=== PATIENT | male | born 1950 | race African-American/Black ===

== ENCOUNTER 2018-10-27 11:21 | Outpatient (CLI) | END 2018-10-27 11:22 | disposition home or self-care (01) | LOC: RHC-LAB 11:21 | PROVIDERS: ATTEND Nurse Practitioner Family | DX: M54.9 Dorsalgia, unspecified (principal); G89.29 Other chronic pain; Z00.00 Encounter for general adult medical examination without abnormal findings; R41.3 Other amnesia; Z12.5 Encounter for screening for malignant neoplasm of prostate; I10 Essential (primary) hypertension; R01.1 Cardiac murmur, unspecified | CPT/HCPCS: 36415; 80053; 80061; 84443; 85025 ==

== ENCOUNTER 2023-03-04 12:51 | Observation (INO) ==
[2023-03-04] MEDS ORDERED: ALBUTEROL 0.083% NEB NEB STA (13:30)
--- NOTE | 2023-03-04 13:32 | ED.PDOC ---
General ED Provider: Dr. LORETO GARCIA MD Chief Complaint: Respiratory Complaint Stated Complaint: i am short of breath and coughing for 2 weeks Time Seen by Provider: 03/04/23 13:45 Information Source: Patient and Other Primary Care Provider: NATASHA MACK MD Nursing and Triage Documentation Reviewed and Agree: Yes Does patient meet sepsis criteria?: No System Inflammatory Response Syndrome: Not Applicable Sepsis Protocol: For patient's 13 years and over: Temp is 96.8 and below OR 101 and greater Pulse >90 BPM Resp >20/minute Acutely Altered Mental Status Are patient's symptoms suggestive of a new infection, such as: -Pneumonia -Skin, Soft Tissue -Endocarditis -UTI -Bone, Joint Infection -Implantable Device -Acute Abdominal Infection -Wound Infection -Meningitis -Blood Stream Catheter Infection -Unknown Review of Systems Review Of Systems Constitutional: Reports No symptoms Respiratory: Reports Cough and Short of air Cardiac: Reports Edema (LE edema) All Other Systems: Reviewed and Negative [facility] Medical History COPD (chronic obstructive pulmonary disease) J44.9 - Chronic obstructive pulmonary disease, unspecified (ICD-10) DVT (deep venous thrombosis) I82.409 - Acute embolism and thrombosis of unspecified deep veins of unspecified lower extremity (ICD-10) Hyperlipidemia E78.5 - Hyperlipidemia, unspecified (ICD-10) Hypertension I10 - Essential (primary) hypertension (ICD-10) Memory loss R41.3 - Other amnesia (ICD-10) Non compliance w medication regimen Z91.14 - Patient's other noncompliance with medication regimen (ICD-10) Pacemaker Z95.0 - Presence of cardiac pacemaker (ICD-10) Seasonal allergies J30.2 - Other seasonal allergic rhinitis (ICD-10) Severe systolic congestive heart failure I50.20 - Unspecified systolic (congestive) heart failure (ICD-10) Family History Mother Myocardial infarction Social History Smoking and tobacco status: Former smoker Second hand smoke exposure: Yes Alcohol intake: former Substance use type: former substance user Carin/church: [employer] Special carin needs: No Agree to transfusion: Yes Adopted: No Household members: none Housing: apartment Marital status: S SINGLE Lives independently: Yes (applied for help at home) Number of children: 8 Number of grandchildren: 8 Highest education level completed: GED or equivalent Financial difficulty paying for basics: somewhat hard service: No long term: No Current occupational status: retired Pets and animals: Yes Leisure activites: other History of recent travel: No Sexually active: No Do you think of yourself as: straight/heterosexual Current gender identity: male Seatbelt use: always Drives intoxicated or rides with intoxicated 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 Water heater temperature set < 120 degrees: Yes Additional social history: pt just moved to [facility] Surgical History colon surgery Physical Exam Physical Exam Appearance: Reports Well-appearing and Thin Ill-appearing: Moderate Pain Distress: None Eyes: Reports LILA and EOMI ENT: Reports Ears normal, Nose normal and Oropharynx normal Neck: Supple Respiratory: Reports Airway patent and Breath sounds equal Cardiovascular: Reports Pulses normal, No rub and No murmur GI/: Reports Soft and Nontender Musculoskeletal: Reports Normal strength, ROM intact and Edema (1+ BLE) Skin: Reports Warm and Dry Neurological: Reports Sensation intact and Motor intact Psychiatric: Reports Affect appropriate Interpretation EKG Interpretation ST Segment: Normal Interpretation: ventricular paced at 94, normal NJ interval, QRS 132 ms normal axis EKG Interpretation By: ED Physician Critical Care Note Critical Care Note Total Critical Care Time (mins): 0 Course Course 03/05/23 05:00 03/05/23 05:00 Orders, Labs, Meds: Lab Review 03/04/23 03/04/23 13:37 13:40 WBC 5.74 RBC 4.58 L Hgb 14.2 Hct 44.4 MCV 96.9 H MCH 31.0 MCHC 32.0 RDW Coeff of Shane 13.5 Plt Count 146 Immature Gran % (Auto) 0.2 Neut % (Auto) 68.8 Lymph % (Auto) 17.8 Mathews % (Auto) 11.8 H Eos % (Auto) 0.7 Baso % (Auto) 0.7 Neut # (Auto) 4.0 Lymph # (Auto) 1.0 Mathews # (Auto) 0.7 Eos # (Auto) 0.0 Baso # (Auto) 0.0 Immature Gran # (Auto) 0.0 Sodium 142.3 Potassium 3.65 Chloride 107.7 H Carbon Dioxide 28.5 Anion Gap 9.75 BUN 14.5 Creatinine 0.83 Estimated GFR (MDRD) 110.00 BUN/Creatinine Ratio 17.46 Glucose 119.3 H Calcium 8.77 Total Bilirubin 1.33 H AST 23.9 ALT 18.2 Alkaline Phosphatase 97.3 NT-Pro-B Natriuret Pep 42732 H Total Protein 7.35 Albumin 4.39 Globulin 2.96 Albumin/Globulin Ratio 1.48 Influ A Molecular Assay Negative by naat Influ B Molecular Assay Negative by naat SARS CoV-2 RNA Rapid POOJA Negative Orders Category Date Time Status PLACE PATIENT OBSERVATION .TO MEDSURG (MONITORED BED ADMISSION 03/04/23 16:08 Active ) EKG-(ED ONLY) Stat CARDIO 03/04/23 13:30 Completed NEBULIZER TREATMENT Stat CARDIO 03/04/23 13:30 Completed ACTIVITY .Early Mobilization for VTE Prevention CARE 03/04/23 16:08 Active NPO REMINDER: IMAGING ONCE CARE 03/04/23 14:14 Completed NPO REMINDER: IMAGING ONCE CARE 03/04/23 14:19 Completed TELEMETRY MONITORING TELE CARE 03/04/23 16:09 Active VITAL SIGNS Q8HR CARE 03/04/23 16:09 Completed REGULAR DIET DIETARY 03/04/23 Dinner Ordered Ice Cream Dispenser [ED GREEN END DEPARTMENT SUPERVISOR APPLIED] .ONCE EMERGENCY 03/04/23 13:32 Active CBC W/ AUTO DIFF DAILY@0600 LAB 03/05/23 05:00 Completed CBC W/ AUTO DIFF DAILY@0600 LAB 03/06/23 06:00 Ordered CBC W/ AUTO DIFF Stat LAB 03/04/23 13:37 Completed CMP [COMPREHENSIVE METABOLIC PANEL] Stat LAB 03/04/23 13:37 Completed COMPREHENSIVE METABOLIC PANEL DAILY@0600 LAB 03/05/23 05:00 Completed COMPREHENSIVE METABOLIC PANEL DAILY@0600 LAB 03/06/23 06:00 Ordered COVID [SARS COV-2 RNA RAPID POOJA] Stat LAB 03/04/23 13:40 Completed FLU A & B MOLECULAR [FLU A/B MOLECULAR] Stat LAB 03/04/23 13:40 Completed PROBNP ED [NT-PROBNP(ED)] Stat LAB 03/04/23 13:37 Completed Acetaminophen [Tylenol] Meds 03/04/23 16:08 Active 650 mg PO Q4H PRN Albuterol Sulfate 0.083% Neb [Albuterol 0.083% Neb] Meds 03/04/23 13:30 Discontinued 2.5 mg NEB ONCE STA Albuterol Sulfate 0.083% Neb [Albuterol 0.083% Neb] Meds 03/04/23 16:08 Active 2.5 mg NEB RTQ6H PRN Azithromycin Inj [Zithromax] 500 mg Meds 03/05/23 09:00 Active 0.9 % Sodium Chloride [Sodium Chloride] 250 ml IV DAILY Azithromycin Inj [Zithromax] 500 mg Meds 03/04/23 15:06 Discontinued 0.9 % Sodium Chloride [Sodium Chloride] 250 ml IV ONCE Ceftriaxone/D5w 1 gm Premix [Rocephin 1 gm/50 ml D5w] Meds 03/05/23 09:00 Active 1 gm in 50 ml IV DAILY Ceftriaxone/D5w 1 gm Premix [Rocephin 1 gm/50 ml D5w] Meds 03/04/23 15:06 Discontinued 1 gm in 50 ml IV ONCE Furosemide [Lasix] Meds 03/04/23 13:34 Discontinued 20 mg IVP ONCE ONE RESUSCITATION STATUS Routine OTHERS 03/04/23 16:08 Ordered CHEST, 1V AP ONLY Stat RADS 03/04/23 13:[address] CHEST PE PROTOCOL Stat RADS 03/04/23 14:19 Completed Medications Generic Name Dose Route Start Last Admin Trade Name Freq PRN Reason Stop Dose Admin Acetaminophen 650 mg 03/04/23 16:08 Acetaminophen 325 Mg Tablet PO Q4H PRN Mild Pain Albuterol Sulfate 2.5 mg 03/04/23 16:08 Albuterol Sulfate 0.083% Vial.Neb NEB RTQ6H PRN shortness of breath Albuterol/Ipratropium 3 ml 03/04/23 18:00 03/05/23 05:08 Ipratropium/Albuterol Vial.Neb NEB 3 ml RTQ6H JORGE Administration Furosemide 40 mg 03/04/23 21:00 03/05/23 04:48 Furosemide Inj 40 Mg/4 Ml Vial IVP 40 mg Q8HR JORGE Administration CEFTRIAXONE/D5W 1 GM PREMIX 1 gm in 50 mls @ 75 mls/hr 03/05/23 09:00 Rocephin 1 Gm/50 Ml D5w IV 03/08/23 08:59 DAILY JORGE Azithromycin 500 mg/ Sodium 250 mls @ 125 mls/hr 03/05/23 09:00 Chloride IV 03/06/23 23:59 DAILY JORGE Discontinued Medications Generic Name Dose Route Start Last Admin Trade Name Ella PRN Reason Stop Dose Admin Albuterol Sulfate 2.5 mg 03/04/23 13:30 03/04/23 13:53 Albuterol Sulfate 0.083% Vial.Neb NEB 03/04/23 13:31 2.5 mg ONCE STA Administration Furosemide 20 mg 03/04/23 13:34 03/04/23 13:59 Furosemide Inj 20 Mg/2 Ml Vial IVP 03/04/23 13:35 20 mg ONCE ONE Administration CEFTRIAXONE/D5W 1 GM PREMIX 1 gm in 50 mls @ 75 mls/hr 03/04/23 15:06 03/04/23 15:39 Rocephin 1 Gm/50 Ml D5w IV 03/04/23 15:45 75 mls/hr ONCE ONE Administration Azithromycin 500 mg/ Sodium 250 mls @ 125 mls/hr 03/04/23 15:06 03/04/23 16:24 Chloride IV 03/04/23 17:05 125 mls/hr ONCE STA Administration Vital Signs: Temp Pulse Resp BP Pulse Ox 03/04/23 12:59 97.8 F 93 16 163/95 H 95 72 yo male with PMH of CHF, DVT,COPD and HTN coming for SOB for 2 weeks, patient was found to be in fluid overload, given lasix 20 mg and albuterol treatment. rocephin and azithromycin for pneumonia. patient was admitted to inpatient services for further managment. Discharge Plan Discharge Patient Disposition: ADMITTED INPATIENT Discharge Problem: Pneumonia, Acute on chronic systolic CHF (congestive heart failure) Did you review [place] LIFE SKILLS INSTRUCTOR for ALL controlled substances?: No ED Provider: LORETO GARCIA Condition: Poor Physician Progress Note: []
[2023-03-04] MEDS ORDERED: LASIX IVP ONE (13:34)
[2023-03-04 13:41] LABS: BASOPHILS % (AUTO) 0.7 % (0.0-3.0); EOSINOPHILS % (AUTO) 0.7 % (0.0-7.0); HEMATOCRIT 44.4 % (42.0-52.0); HEMOGLOBIN 14.2 g/dl (14.0-18.0); IMMATURE GRANULOCYTE % (AUTO) 0.2 % (0.0-5.0); LYMPHOCYTES % (AUTO) 17.8 (10.0-50.0); MEAN CORPUSCULAR VOLUME 96.9 fl (80.0-94.0); MONOCYTES # (AUTO) 0.7 K/uL (0.4-2.0); MONOCYTES % (AUTO) 11.8 (0-10); NEUTROPHILS % (AUTO) 68.8 % (42.2-75.2); PLATELET COUNT 146 10^3/uL (140-440); RDW COEFFICIENT OF VARIATION 13.5 % (11.6-14.8); RED BLOOD COUNT 4.58 10^6/ul (4.70-6.10); WHITE BLOOD COUNT 5.74 K/ul (4.2-10.2)
[2023-03-04 13:55] LABS: ALANINE AMINOTRANSFERASE 18.2 U/L (0-50); ALBUMIN 4.39 g/dL (3.5-5.0); ALKALINE PHOSPHATASE 97.3 U/L (56-119); ASPARTATE AMINO TRANSFERASE 23.9 U/L (17-59); BILIRUBIN,TOTAL 1.33 mg/dL (0.2-1.3); BLOOD UREA NITROGEN 14.5 mg/dL (9-20); CALCIUM 8.77 mg/dL (8.4-10.2); CARBON DIOXIDE 28.5 mmol/L (22-30.0); CHLORIDE 107.7 mmol/L (98-107); CREATININE 0.83 mg/dL (0.60-1.10); GLUCOSE 119.3 mg/dL (74-106); POTASSIUM 3.65 mmol/L (3.5-5.1); SODIUM 142.3 mmol/L (134.5-145); TOTAL PROTEIN 7.35 g/dL (6.3-8.2)
[2023-03-04 14:03] LABS: MOLECULAR FLU A NEGATIVE BY NAAT (NEGATIVE); MOLECULAR FLU B NEGATIVE BY NAAT (NEGATIVE)
--- NOTE | 2023-03-04 14:06 | DI ---
EXAM: CHEST RADIOGRAPH (1 VIEW) TECHNIQUE: Frontal Chest Radiograph. HISTORY: Cough COMPARISON: None. FINDINGS: Lines, Tubes, Devices: Cardiac conduction device Lungs and Pleura: Small pleural effusions with adjacent consolidation, left greater than right. Cardiac silhouette: Enlarged. Bones: No acute abnormality. IMPRESSION: Findings concerning for pneumonia. Clinical and imaging follow-up to ensure resolution and exclude other etiology.
[2023-03-04 14:15] LABS: SARS COV-2 RNA RAPID NAAT NEGATIVE (NEGATIVE)
[2023-03-04] MEDS ORDERED: ZITHROMAX 500 MG in SODIUM CHLORIDE 250 ML IV STA (15:06)
[2023-03-04] MEDS ORDERED: ROCEPHIN 1 GM/50 ML D5W 1 GM/50 ML BAG IV ONE (15:06)
--- NOTE | 2023-03-04 15:22 | CT ---
EXAM: CT ANGIOGRAM CHEST. HISTORY: Shortness of breath. Previous deep vein thrombosis. Evaluate for pulmonary embolus. COMPARISON: Radiograph earlier the same day. TECHNIQUE: Multiple axial images of the chest were obtained following intravenous administration of 75 mL Omnipaque 350, low osmolar. Images were reformatted in the sagittal and coronal plane. 3-D an d maximum intensity projection reformatted images were created on an independent workstation. FINDINGS: Right-sided electronic cardiac device noted. Heart is enlarged. There is no pericardial effusion. Coronary artery and aortic calcifications present. No pulmonary arterial filling defect is seen. No right heart strain. No lymphadenopathy. Moderate emphysema. Small bilateral pleural effusions. Calcified granulomatous changes. Mild depen dent subsegmental atelectasis left lower lobe. A few small subpleural nodular densities in the anter omedial left upper lobe and the right middle lobe measuring up to 0.4 cm. No pneumothorax. No acute abnormality in the upper abdomen. No acute osseous abnormality. IMPRESSION: 1. No pulmonary embolus. 2. Small bilateral pleural effusions. 3. Right middle lobe and left upper lobe nodularity, most likely infectious or inflammatory. Consid er follow-up CT in 3 months for reassessment. 4. Moderate emphysema. 5. Cardiomegaly and atherosclerosis. All CT scans are performed using dose optimization techniques as appropriate to the performed exam an d include at least one of the following: Automated exposure control, adjustment of the mA and/or kV according t o size, and the use of iterative reconstruction technique.
[2023-03-04] MEDS ORDERED: TYLENOL PO PRN (16:08)
[2023-03-04] MEDS ORDERED: ALBUTEROL 0.083% NEB NEB PRN (16:08)
--- NOTE | 2023-03-04 17:16 | PCM ---
Date of Service Date Seen by Provider: 03/04/23 Time Seen by Provider: 17:05 Admit Day/Time Admission Date: 03/04/23 Reason for Admission Chief Complaint: CHF EXACERBATION, PNEUMONIA Hospital Provider Hospital Provider: JAC RODRIGEZ, [facility] Primary Care Physician Primary Care Physician: NATASHA MACK MD History of Present Illness History of Present Illness: 72 yo male presented to the ER today with shortness of breath that has been ongoing for 2 weeks. Has also had a dry cough. Patient has a history of early dementia and is a poor historian. Denies any fever that he is aware of, chest pain, chills, N/V/D. Does report having trouble with edema. He saw his PCP earlier this month following his admission at [facility] for DVT. During his appointment, he was asked if he was doing all the things he is s upposed to and stated that he wasn't. He was told to be sure he was elevating his legs and wearing compression stockings like he is supposed to. Son was speaking to patient in ER and patient had stated he was forgetting to take his medications every day. Case Discussed With Case Discussed With: Patient's case was discussed with the ER Physicians, Dr. Reyes [facility] Medical History COPD (chronic obstructive pulmonary disease) J44.9 - Chronic obstructive pulmonary disease, unspecified (ICD-10) DVT (deep venous thrombosis) I82.409 - Acute embolism and thrombosis of unspecified deep veins of unspecified lower extremity (ICD-10) Hyperlipidemia E78.5 - Hyperlipidemia, unspecified (ICD-10) Hypertension I10 - Essential (primary) hypertension (ICD-10) Memory loss R41.3 - Other amnesia (ICD-10) Non compliance w medication regimen Z91.14 - Patient's other noncompliance with medication regimen (ICD-10) Pacemaker Z95.0 - Presence of cardiac pacemaker (ICD-10) Seasonal allergies J30.2 - Other seasonal allergic rhinitis (ICD-10) Severe systolic congestive heart failure I50.20 - Unspecified systolic (congestive) heart failure (ICD-10) Surgical History colon surgery Family History Mother Myocardial infarction Social History Smoking and tobacco status: Former smoker Second hand smoke exposure: Yes Alcohol intake: former Substance use type: former substance user Carin/yarsani: ROMAN CATHOLIC Special carin needs: No Agree to transfusion: Yes Adopted: No Household members: none Housing: apartment Marital status: S SINGLE Lives independently: Yes (applied for help at home) Number of children: 8 Number of grandchildren: 8 Highest education level completed: GED or equivalent Financial difficulty paying for basics: somewhat hard service: No assisted: No Current occupational status: retired Pets and animals: Yes Leisure activites: other History of recent travel: No Sexually active: No Do you think of yourself as: straight/heterosexual Current gender identity: male Seatbelt use: always Drives intoxicated or rides with intoxicated 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 Water heater temperature set < 120 degrees: Yes Additional social history: pt just moved to [facility] Allergies Allergies Allergy/AdvReac Type Severity Reaction Status Date / Time lisinopril AdvReac Cough Verified 03/04/23 12:58 versed AdvReac Unknown Uncoded 03/04/23 12:58 Current Medications Home Medications atorvastatin 40 mg tablet 40 mg PO QPM 01/24/21 [History Confirmed 03/04/23 Last Taken Unknown] nitroglycerin 0.4 mg sublingual tablet 0.4 mg sublingual Q5M PRN chest pain 01/24/21 [History Confirmed 03/04/23 Last Taken Unknown] carvedilol 12.5 mg tablet 25 mg PO BID 09/03/22 [History Confirmed 03/04/23 Last Taken Unknown] furosemide 40 mg tablet 20 mg PO BID 09/03/22 [History Confirmed 03/04/23 Last Taken Unknown] sacubitril 49 mg-valsartan 51 mg tablet (Entresto) 1 tab PO BID 09/03/22 [History Confirmed 03/04/23 Last Taken Unknown] Eliquis DVT-PE Treat 30D Start (apixaban) See Rx Instructions PO PER PKG DIR #74 ea 02/05/23 [Rx Confirmed 03/04/23 Last Taken Unknown] loratadine 10 mg tablet (Allergy Relief (loratadine)) 10 mg PO QDAY 30 days #30 tabs 02/05/23 [Rx Confirmed 03/04/23 Last Taken Unknown] Home Acetaminophen (Acetaminophen 325 Mg Tablet) 650 mg PO Q4H PRN PRN Reason: Mild Pain Albuterol Sulfate (Albuterol Sulfate 0.083% Vial.Neb) 2.5 mg NEB RTQ6H PRN PRN Reason: shortness of breath Albuterol/Ipratropium (Ipratropium/Albuterol Vial.Neb) 3 ml NEB RTQ6H JORGE Last Admin: 03/04/23 17:39 Dose: 3 ml Furosemide (Furosemide Inj 40 Mg/4 Ml Vial) 40 mg IVP Q8HR JORGE CEFTRIAXONE/D5W 1 GM PREMIX (Rocephin 1 Gm/50 Ml D5w) 1 gm in 50 mls @ 75 mls/hr IV DAILY JORGE Stop: 03/08/23 08:59 Azithromycin 500 mg/ Sodium (Chloride) 250 mls @ 125 mls/hr IV DAILY JORGE Stop: 03/06/23 23:59 Discontinued Medications Albuterol Sulfate (Albuterol Sulfate 0.083% Vial.Neb) 2.5 mg NEB ONCE STA Stop: 03/04/23 13:31 Last Admin: 03/04/23 13:53 Dose: 2.5 mg Furosemide (Furosemide Inj 20 Mg/2 Ml Vial) 20 mg IVP ONCE ONE Stop: 03/04/23 13:35 Last Admin: 03/04/23 13:59 Dose: 20 mg CEFTRIAXONE/D5W 1 GM PREMIX (Rocephin 1 Gm/50 Ml D5w) 1 gm in 50 mls @ 75 mls/hr IV ONCE ONE Stop: 03/04/23 15:45 Last Admin: 03/04/23 15:39 Dose: 75 mls/hr Azithromycin 500 mg/ Sodium (Chloride) 250 mls @ 125 mls/hr IV ONCE STA Stop: 03/04/23 17:05 Last Admin: 03/04/23 16:24 Dose: 125 mls/hr Review of Systems Constitutional: Reports No symptoms Head: Reports Normocephalic and Atraumatic Eyes: Reports No symptoms Ears: Reports No symptoms Nose: Reports No symptoms Mouth: Reports No symptoms Throat: Reports No symptoms Cardiovascular: Reports Edema (BLE) Respiratory: Reports Cough (nonproductive) Gastrointestinal: Reports No symptoms Genitourinary: Reports No Symptoms Musculoskeletal: Reports No symptoms Endocrine: Reports No symptoms Hematology: Reports No symptoms Immunology: Reports No symptoms Neurological: Reports No symptoms Psychiatric: Reports No symptoms Physical examination Most Recent Vital Signs: Most Recent Vital Signs Temperature 97.8 F 03/04/23 12:59 Temperature Source Infrared 03/04/23 12:59 Pulse Rate 93 03/04/23 12:59 Respiratory Rate 16 03/04/23 12:59 Blood Pressure 163/95 H 03/04/23 12:59 O2 Sat by Pulse Oximetry 95 03/04/23 12:59 Height 5 ft 9 in 03/04/23 12:59 Weight 139 lb 6 oz 03/04/23 12:59 Appearance: Positive No Apparent Distress, Ill-Appearing and Thin Skin: Positive Warm, Good Turgor and Good Color HEENT: Positive Normocephalic, Atraumatic and PERRLA Neck: Positive Supple and Midline Trachea Chest/Lungs: Positive Symmetrical With Equal Breath Sounds, Good Air Movement all 4 Lung Owusu and Other (bibasilar crackles bilaterally to auscultation) Heart: Positive RRR and Pulses Normal GI/: Positive Soft, Nontender, Bowel Sounds Normal, No Distention and No Organomegaly Musculoskeletal: Positive Not Examined Extremities: Positive Edema (+2 nonpitting edema) Neurological: Positive Sensation Intact, Motor intact, Alert, Oriented (to person and place) and Muscle Strength 5/5 in Upper and Lower Extremities Bilaterally (4/5) Psychiatric: Positive Appropriate Mood, Appropriate Affect, Intact Memory, Good Short-Term Recall and Good Long-Term Recall Labs This Visit Labs This Visit: Labs This Visit 03/04/23 03/04/23 13:37 13:40 WBC 5.74 RBC 4.58 L Hgb 14.2 Hct 44.4 MCV 96.9 H MCH 31.0 MCHC 32.0 RDW Coeff of Shane 13.5 Plt Count 146 Immature Gran % (Auto) 0.2 Neut % (Auto) 68.8 Lymph % (Auto) 17.8 [place] % (Auto) 11.8 H Eos % (Auto) 0.7 Baso % (Auto) 0.7 Neut # (Auto) 4.0 Lymph # (Auto) 1.0 [place]ble # (Auto) 0.7 Eos # (Auto) 0.0 Baso # (Auto) 0.0 Immature Gran # (Auto) 0.0 Sodium 142.3 Potassium 3.65 Chloride 107.7 H Carbon Dioxide 28.5 Anion Gap 9.75 BUN 14.5 Creatinine 0.83 Estimated GFR (MDRD) 110.00 BUN/Creatinine Ratio 17.46 Glucose 119.3 H Calcium 8.77 Total Bilirubin 1.33 H AST 23.9 ALT 18.2 Alkaline Phosphatase 97.3 NT-Pro-B Natriuret Pep 13042 H Total Protein 7.35 Albumin 4.39 Globulin 2.96 Albumin/Globulin Ratio 1.48 Influ A Molecular Assay Negative by naat Influ B Molecular Assay Negative by naat SARS CoV-2 RNA Rapid POOJA Negative Imaging Imagining: CT CHEST PE PROTOCOL IMPRESSION: 1. No pulmonary embolus. 2. Small bilateral pleural effusions. 3. Right middle lobe and left upper lobe nodularity, most likely infectious or inflammatory. Consider follow-up CT in 3 months for reassessment. 4. Moderate emphysema. 5. Cardiomegaly and atherosclerosis. CHEST, 1V AP ONLY IMPRESSION: Findings concerning for pneumonia. Clinical and imaging follow-up to ensure resolution and exclude other etiology. Review Statement Review Statement: I have independently reviewed and interpreted the labs/EKGs/imaging that were ordered by the ER provider. I have reviewed all outside records that are available currently in our EMR including imaging/notes/labs from previous visits. Plan Plan: 1. Community Acquired vs Hospital Acquired Pneumonia - rocephin & eric, sputum culture, telemetry, RT following, nebs, solumedrol Q8H 2. Acute on Chronic Systolic Congestive Heart Failure - lasix 40 mg Q8H, strict I&O, daily weight, 1800 fluid restriction 3. COPD - chronic, does not wear home O2, does not appear to be in exacerbation, monitor 4. Hypertension - chronic, continue home medications 5. DVT - treating with eliquis as previously prescribed 6. Hyperlipidemia - chronic, continue home medications DVT Prophylaxis: Eliquis Time Spent: Greater than 80 minutes spent with patient, 50% of the time spent with this patient was devoted to counseling and coordination of care. Advanced Care Plannin minutes spent discussing advance care planning. Disposition: Admit to Med/Surg Observation Discussed Plan of Care with Dr. Tanner. Medications Medication Orders: Medications Ordered Category Date Time Status Acetaminophen [Tylenol] Meds 03/04/23 16:08 Active 650 mg PO Q4H PRN Albuterol Sulfate 0.083% Neb [Albuterol 0.083% Neb] Meds 03/04/23 16:08 Active 2.5 mg NEB RTQ6H PRN Azithromycin Inj [Zithromax] 500 mg Meds 03/05/23 09:00 Active 0.9 % Sodium Chloride [Sodium Chloride] 250 ml IV DAILY Ceftriaxone/D5w 1 gm Premix [Rocephin 1 gm/50 ml D5w] Meds 03/05/23 09:00 Active 1 gm in 50 ml IV DAILY Furosemide [Lasix] Meds 03/04/23 21:00 Active 40 mg IVP Q8HR Ipratropium/Albuterol Neb [Duoneb] Meds 03/04/23 18:00 Active 3 ml NEB RTQ6H
[2023-03-04] MEDS: DUONEB NEB SCH ×2 (17:39→22:50)
[2023-03-04 17:58] VITALS: BMI 19.6
[2023-03-04] MEDS ORDERED: ATROVENT 0.02% NEB NEB SCH (18:00)
[2023-03-04] MEDS ORDERED: LASIX IVP SCH (21:00)
[2023-03-04] MEDS: LASIX IVP SCH (21:50)
[2023-03-05] MEDS: LASIX IVP SCH ×3 (04:48→20:25)
[2023-03-05] MEDS: DUONEB NEB SCH ×4 (05:08→23:13)
[2023-03-05 05:10] LABS: BASOPHILS % (AUTO) 0.8 % (0.0-3.0); EOSINOPHILS % (AUTO) 0.6 % (0.0-7.0); HEMATOCRIT 39.3 % (42.0-52.0); HEMOGLOBIN 12.6 g/dl (14.0-18.0); IMMATURE GRANULOCYTE % (AUTO) 0.2 % (0.0-5.0); LYMPHOCYTES % (AUTO) 21.6 (10.0-50.0); MEAN CORPUSCULAR HEMOGLOBIN 30.3 pg (27.0-31.0); MEAN CORPUSCULAR HGB CONC 32.1 (31.8-35.4); MEAN CORPUSCULAR VOLUME 94.5 fl (80.0-94.0); MONOCYTES # (AUTO) 0.7 K/uL (0.4-2.0); MONOCYTES % (AUTO) 15.2 (0-10); NEUTROPHILS % (AUTO) 61.6 % (42.2-75.2); PLATELET COUNT 130 10^3/uL (140-440); RDW COEFFICIENT OF VARIATION 13.5 % (11.6-14.8); RED BLOOD COUNT 4.16 10^6/ul (4.70-6.10); WHITE BLOOD COUNT 4.81 K/ul (4.2-10.2)
[2023-03-05 05:18] LABS: ALANINE AMINOTRANSFERASE 15.8 U/L (0-50); ALBUMIN 4.03 g/dL (3.5-5.0); ALKALINE PHOSPHATASE 87.4 U/L (56-119); ASPARTATE AMINO TRANSFERASE 23.3 U/L (17-59); BILIRUBIN,TOTAL 1.18 mg/dL (0.2-1.3); BLOOD UREA NITROGEN 14.5 mg/dL (9-20); CARBON DIOXIDE 30.6 mmol/L (22-30.0); CHLORIDE 106.5 mmol/L (98-107); CREATININE 0.92 mg/dL (0.60-1.10); GLUCOSE 102.6 mg/dL (74-106); MAGNESIUM 2.08 mg/dL (1.6-2.3); POTASSIUM 3.32 mmol/L (3.5-5.1); SODIUM 143.4 mmol/L (134.5-145); TOTAL PROTEIN 6.72 g/dL (6.3-8.2)
[2023-03-05] MEDS ORDERED: K-DUR PO STA (08:17)
[2023-03-05] MEDS: ROCEPHIN 1 GM/50 ML D5W 1 GM/50 ML BAG IV SCH (08:52)
--- NOTE | 2023-03-05 09:23 | PCM.PROG ---
Date/Time Seen Date Seen by Provider: 03/05/23 Time Seen by Provider: 09:05 Provider [facility] Chief Complaint Chief Complaint: CHF EXACERBATION, PNEUMONIA Subjective Subjective: Feels better today. Requesting to go home. Edema worse today. Still SOB on exertion Objective Appearance: Positive Ill-Appearing and Thin Chest/Lungs: Positive Symmetrical With Equal Breath Sounds, Clear to Auscultation Bilaterally and Good Air Movement all 4 Lung [place] Heart: Positive RRR and Pulses Normal GI/: Positive Soft, Nontender, Bowel Sounds Normal, No Distention and No Organomegaly Musculoskeletal: Positive Not Examined Neurological: Positive Sensation Intact, Motor intact, Alert, Oriented (to person and place) and Muscle Strength 5/5 in Upper and Lower Extremities Bilaterally (4/5) Vital Signs Vital Signs: Vital Signs: Last 24 Hours 03/04/23 12:59 03/04/23 17:02 03/04/23 17:02 Temperature 97.8 F 96.2 F L Temperature Source Infrared Oral Pulse Rate 93 92 Respiratory Rate 16 22 H Blood Pressure 163/95 H Blood Pressure Mean Blood Pressure Right Arm 155/92 Blood Pressure Location Blood Pressure Position Supine O2 Sat by Pulse Oximetry 95 100 Oxygen Delivery Method Room Air Room Air Height 5 ft 9 in 5 ft 9 in Weight 139 lb 6 oz 133 lb Telemetry Type Telemetry Monitoring Telemetry Heart Rate EKG IL Interval EKG QRS Interval Telemetry Strip Reading 03/04/23 17:16 03/04/23 17:52 03/04/23 19:00 Temperature Temperature Source Pulse Rate Respiratory Rate Blood Pressure Blood Pressure Mean Blood Pressure Right Arm Blood Pressure Location Blood Pressure Position O2 Sat by Pulse Oximetry Oxygen Delivery Method Height Weight 133 lb Telemetry Type Remote Telemetry Remote Telemetry Telemetry Monitoring Started Continues Telemetry Heart Rate 96 100 EKG IL Interval 0.19 EKG QRS Interval 0.06 0.10 Telemetry Strip Reading Vpaced with PVC SR 03/04/23 20:54 03/04/23 20:00 03/05/23 01:00 Temperature 97.3 F L Temperature Source Temporal Artery Scan Pulse Rate 90 Respiratory Rate 18 Blood Pressure 132/76 Blood Pressure Mean 94 Blood Pressure Right Arm Blood Pressure Location Right Arm Blood Pressure Position Supine O2 Sat by Pulse Oximetry 94 L Oxygen Delivery Method Room Air Room Air Height Weight Telemetry Type Remote Telemetry Telemetry Monitoring Continues Telemetry Heart Rate 85 EKG IL Interval 0.22 H EKG QRS Interval 0.07 Telemetry Strip Reading SR w/ PVCs 03/05/23 05:39 03/05/23 05:41 03/05/23 07:00 Temperature 96.7 F L Temperature Source Temporal Artery Scan Pulse Rate 85 Respiratory Rate 16 Blood Pressure 152/98 H Blood Pressure Mean 116 Blood Pressure Right Arm Blood Pressure Location Right Arm Blood Pressure Position Sitting O2 Sat by Pulse Oximetry 96 Oxygen Delivery Method Room Air Height Weight 127 lb 1.6 oz Telemetry Type Remote Telemetry Telemetry Monitoring Continues Telemetry Heart Rate 85 EKG IL Interval 0.13 EKG QRS Interval 0.10 Telemetry Strip Reading V PACED 03/05/23 08:00 Temperature Temperature Source Pulse Rate Respiratory Rate Blood Pressure Blood Pressure Mean Blood Pressure Right Arm Blood Pressure Location Blood Pressure Position O2 Sat by Pulse Oximetry Oxygen Delivery Method Room Air Height Weight Telemetry Type Telemetry Monitoring Telemetry Heart Rate EKG IL Interval EKG QRS Interval Telemetry Strip Reading Lab Results Lab Results: Lab Results: Last 24 Hours 03/05/23 03/04/23 03/04/23 05:00 13:40 13:37 WBC 4.81 5.74 RBC 4.16 L 4.58 L Hgb 12.6 L 14.2 Hct 39.3 L 44.4 MCV 94.5 H 96.9 H MCH 30.3 31.0 MCHC 32.1 32.0 RDW Coeff of Shane 13.5 13.5 Plt Count 130 L 146 Immature Gran % (Auto) 0.2 0.2 Neut % (Auto) 61.6 68.8 Lymph % (Auto) 21.6 17.8 [place] % (Auto) 15.2 H 11.8 H Eos % (Auto) 0.6 0.7 Baso % (Auto) 0.8 0.7 Neut # (Auto) 3.0 4.0 Lymph # (Auto) 1.0 1.0 [place] # (Auto) 0.7 0.7 Eos # (Auto) 0.0 0.0 Baso # (Auto) 0.0 0.0 Immature Gran # (Auto) 0.0 0.0 Sodium 143.4 142.3 Potassium 3.32 L 3.65 Chloride 106.5 107.7 H Carbon Dioxide 30.6 H 28.5 Anion Gap 9.62 9.75 BUN 14.5 14.5 Creatinine 0.92 0.83 Estimated GFR (MDRD) 97.00 110.00 BUN/Creatinine Ratio 15.76 17.46 Glucose 102.6 119.3 H Calcium 8.50 8.77 Magnesium 2.08 Total Bilirubin 1.18 1.33 H AST 23.3 23.9 ALT 15.8 18.2 Alkaline Phosphatase 87.4 97.3 NT-Pro-B Natriuret Pep > 79045 H 11659 H Total Protein 6.72 7.35 Albumin 4.03 4.39 Globulin 2.69 2.96 Albumin/Globulin Ratio 1.49 1.48 Influ A Molecular Assay Negative by naat Influ B Molecular Assay Negative by naat SARS CoV-2 RNA Rapid POOJA Negative Additional Comments Additional Comments: I have independently reviewed and interpreted the labs/EKGs/imaging ordered during this hospital stay. I have reviewed outside records that are available in our EMR that pertain to medical stay including imaging/notes/labs from previous visits. Active Medications Active Medications: Medications Generic Name Dose Route Start Last Admin Trade Name Freq PRN Reason Stop Dose Admin Acetaminophen 650 mg 03/04/23 16:08 Acetaminophen 325 Mg Tablet PO Q4H PRN Mild Pain Albuterol Sulfate 2.5 mg 03/04/23 16:08 Albuterol Sulfate 0.083% Vial.Neb NEB RTQ6H PRN shortness of breath Albuterol/Ipratropium 3 ml 03/04/23 18:00 03/05/23 05:08 Ipratropium/Albuterol Vial.Neb NEB 3 ml RTQ6H JORGE Administration Furosemide 40 mg 03/04/23 21:00 03/05/23 04:48 Furosemide Inj 40 Mg/4 Ml Vial IVP 40 mg Q8HR JORGE Administration CEFTRIAXONE/D5W 1 GM PREMIX 1 gm in 50 mls @ 75 mls/hr 03/05/23 09:00 03/05/23 08:52 Rocephin 1 Gm/50 Ml D5w IV 03/08/23 08:59 75 mls/hr DAILY JORGE Administration Azithromycin 500 mg/ Sodium 250 mls @ 125 mls/hr 03/05/23 09:00 Chloride IV 03/06/23 23:59 DAILY JORGE Plan Plan: 1. Community Acquired vs Hospital Acquired Pneumonia - sourav & eric, sputum culture, telemetry, RT following, nebs, solumedrol Q8H, procal negative 2. Acute on Chronic Systolic Congestive Heart Failure - continue lasix 40 mg Q8H, strict I&O, daily weight, 1800 fluid restriction, checking echo - last was in 2020 with EF of 15%. 3. COPD - chronic, does not wear home O2, does not appear to be in exacerbation, monitor 4. Hypertension - chronic, continue home medications 5. DVT - treating with eliquis as previously prescribed 6. Hyperlipidemia - chronic, continue home medications Review Statement Review Statement: I have personally discussed and reviewed the patient's visit/currently labs/imaging/decision making with Dr. Tanner, my supervising attending. Greater that 50 minutes spent with patient, 50% of the time spent with this patient was devoted to counseling and coordination of care.
[2023-03-05] MEDS: ZITHROMAX 500 MG in SODIUM CHLORIDE 250 ML IV SCH (09:53)
[2023-03-05] MEDS ORDERED: ENTRESTO 24 MG-26 MG TABLET ONE (16:37)
[2023-03-05] MEDS ORDERED: ELIQUIS ONE (16:37)
[2023-03-05] MEDS: CLARITIN PO SCH (16:39)
[2023-03-05] MEDS: COREG PO SCH (16:39)
[2023-03-05] MEDS: ENTRESTO 24 MG-26 MG TABLET PO SCH (20:08)
[2023-03-05] MEDS: ELIQUIS PO SCH (20:08)
[2023-03-06] MEDS: LASIX IVP SCH ×2 (05:04→14:13)
[2023-03-06] MEDS: DUONEB NEB SCH ×2 (05:38→10:59)
[2023-03-06 08:45] LABS: ALANINE AMINOTRANSFERASE 14.2 U/L (0-50); ALBUMIN 3.89 g/dL (3.5-5.0); ALKALINE PHOSPHATASE 84.3 U/L (56-119); ASPARTATE AMINO TRANSFERASE 20.3 U/L (17-59); BILIRUBIN,TOTAL 0.97 mg/dL (0.2-1.3); BLOOD UREA NITROGEN 13.9 mg/dL (9-20); CALCIUM 8.61 mg/dL (8.4-10.2); CARBON DIOXIDE 28.2 mmol/L (22-30.0); CHLORIDE 106.6 mmol/L (98-107); CREATININE 0.91 mg/dL (0.60-1.10); GLUCOSE 106.6 mg/dL (74-106); POTASSIUM 3.85 mmol/L (3.5-5.1); SODIUM 140.3 mmol/L (134.5-145); TOTAL PROTEIN 6.61 g/dL (6.3-8.2)
[2023-03-06] MEDS ORDERED: ALDACTONE PO SCH (09:00)
[2023-03-06] MEDS ORDERED: JARDIANCE PO SCH (09:00)
[2023-03-06] MEDS: ENTRESTO 24 MG-26 MG TABLET PO SCH (09:05)
[2023-03-06] MEDS: COREG PO SCH (09:06)
[2023-03-06] MEDS: CLARITIN PO SCH (09:07)
[2023-03-06] MEDS: ELIQUIS PO SCH (09:07)
[2023-03-06] MEDS: ZITHROMAX 500 MG in SODIUM CHLORIDE 250 ML IV SCH (09:07)
[2023-03-06 09:08] LABS: BASOPHILS # (AUTO) 0.1 K/uL (0-0.2); EOSINOPHILS # (AUTO) 0.1 K/ul (0.0-0.7); EOSINOPHILS % (AUTO) 2.2 % (0.0-7.0); HEMATOCRIT 40.2 % (42.0-52.0); HEMOGLOBIN 13.1 g/dl (14.0-18.0); IMMATURE GRANULOCYTE % (AUTO) 0.2 % (0.0-5.0); LYMPHOCYTES # (AUTO) 1.1 K/uL (0.60-3.4); LYMPHOCYTES % (AUTO) 18.3 (10.0-50.0); MEAN CORPUSCULAR HGB CONC 32.6 (31.8-35.4); MONOCYTES # (AUTO) 0.8 K/uL (0.4-2.0); MONOCYTES % (AUTO) 12.9 (0-10); NEUTROPHILS # (AUTO) 3.9 K/ul (2.0-6.9); NEUTROPHILS % (AUTO) 65.4 % (42.2-75.2); PLATELET COUNT 138 10^3/uL (140-440); RDW COEFFICIENT OF VARIATION 13.7 % (11.6-14.8); RED BLOOD COUNT 4.23 10^6/ul (4.70-6.10); WHITE BLOOD COUNT 5.95 K/ul (4.2-10.2)
[2023-03-06 10:32] VITALS: BP 94/59; RESP 16; TEMP 96.5
[2023-03-06] MEDS: ROCEPHIN 1 GM/50 ML D5W 1 GM/50 ML BAG IV SCH (11:24)
--- NOTE | 2023-03-06 12:30 | ECHO2D ---
Date of Exam: 03/06/2023 Ordering Physician: DR. MACK/HOSPITALIST-KERRIE Goldstein Room #: [id number] Reason for Echo: CHF M-Mode Normal Adult Results LV Dimensions Normal Adult Results AoV Opening excursions >1.6 >1.6 LVEDD-base- 3.5-5.8 5.4 Ao root dimensions 2.0-3.7 3.1 LVESD-base- 3.1-4.6 L. Atrium dimensions 1.9-3.8 4.3 Post. Wall thickness 0.8-1.1 1.2 IV septum (thickness) 0.7-1.2 1.3 Post. Wall excursion 0.72-1.3 0.2 Septal motion 0.3 Systolic motion R. Ventricular cavity 1.5-2.0 3.5 LVEF 60% 20-25% Paradoxical septal wall motion NORMAL 2-D : MITRAL VALVE PROLAPSE NOTED LEFT PARASTERNAL LONG AXIS AND APICAL FOUR CHAMBER VIEW--AORTIC VALVE, TRICUSPID VALVE, PULMONARY VALVE --NORMAL, ENLARGED RIGHT VENTRICLE, RIGHT ATRIAL AND LEFT ATRIAL CAVITIES--LEFT VENTRICLE SIZE NORMAL, HYPOKINETIC LEFT VENTRICLE --NO THROMBUS, NO EFFUSION, PACEMAKER WIRES SEEN COLOR FLOW: MILD TO MODERATE --TRICUSPID REGURGITATION, MITRAL REGURGITATION, AORTIC REGURGITATION M-MODE: MV: MITRAL VALVE PROLAPSE NOTED AV: NORMAL TV: NORMAL PV: NORMAL CHAMBER SIZE: ENLARGED RIGHT VENTRICLE, RIGHT ATRIAL AND LEFT ATRIAL SIZE WALL MOTION: HYPOKINETIC LEFT VENTRICLE PERICARDIUM: NORMAL INTERPRETATION: 1. LEFT VENTRICLE HYPERTROPHY 2. ENLARGED LEFT ATRIAL, RIGHT VENTRICLE AND RIGHT ATRIAL CAVITIES 3. SEVERE HYPOKINETIC LEFT VENTRICLE WITH EJECTION FRACTION 20 TO 25% 4. MILD TO MODERATE TRICUSPID REGURGITATION, MITRAL REGURGITATION, AORTIC REGURGITATION MTDD
--- NOTE | 2023-03-06 12:58 | DCSUM ---
Admission Date Admission Date: 03/04/23 Discharge Date Discharge Date: 03/06/23 Admission Diagnosis Admission Diagnosis: CHF Exacerbation, CAP Discharge Diagnosis Discharge Diagnosis: CHF Exacerbation, CAP Hospital Provider Hospital Provider: JAC RODRIGEZ, [facility] [place] Primary Care Physician Primary Care Physician: NATASHA MACK MD Summary of History and Physical Summary of History and Physical: 72 yo male presented to the ER today with shortness of breath that has been ongoing for 2 weeks. Has also had a dry cough. Patient has a history of early dementia and is a poor historian. Denies any fever that he is aware of, chest pain, chills, N/V/D. Does report having trouble with edema. He saw his PCP earlier this month following his admission at [facility] for DVT. During his appointment, he was asked if he was doing all the things he is supposed to and stated that he wasn't. He was told to be sure he was elevating his legs and wearing compression stockings like he is supposed to. Son was speaking to patient in ER and patient had stated he was forgetting to take his medications every day. Hospital Course Subjective: Feeling better today. No events overnight. No fever. Requesting to go home. Edema improved. Patient has been receiving lasix 40 mg Q8H, fluid restriction of 1800 mL, and was started on spironolactone and jardiance for his severe chronic systolic heart failure. Echo was completed today which showed EF of 20-25% (improved from 15% back in 2020). Has been treated with steroids and azithromycin and rocephin for CAP. Appearance: Pleasant, No Apparent Distress and Alert HEENT: MMM and Supple CVS: No Murmur Abdomen: Soft, Non-Tender and No Distention Respiratory: No Dyspnea Extremities: No Edema (+1 edema) Vital Signs: Most Recent Vital Signs Temperature 96.5 F L 03/06/23 10:00 Temperature Source Temporal Artery Scan 03/06/23 10:00 Temperature Source Infrared 03/04/23 12:59 Pulse Rate 66 03/06/23 10:00 Respiratory Rate 16 03/06/23 10:00 Blood Pressure 94/59 L 03/06/23 10:00 Blood Pressure Mean 70 03/06/23 10:00 Blood Pressure Right Arm 155/92 03/04/23 17:02 Blood Pressure Location Right Arm 03/06/23 10:00 Blood Pressure Position Sitting 03/06/23 10:00 O2 Sat by Pulse Oximetry 96 03/06/23 10:00 Oxygen Delivery Method Room Air 03/06/23 10:00 Height 5 ft 9 in 03/04/23 17:02 Weight 131 lb 3 oz 03/06/23 05:14 Telemetry Type Remote Telemetry 03/06/23 07:00 Telemetry Monitoring Continues 03/06/23 07:00 Telemetry Heart Rate 79 03/06/23 07:00 Telemetry SPO2 94 03/06/23 00:53 EKG MN Interval 0.13 03/05/23 07:00 EKG QRS Interval 0.09 03/06/23 07:00 Telemetry Strip Reading Paced 03/06/23 07:00 Imaging: Date of Exam:03/06/2023 Ordering Physician:DR. MACK/ELIANA Goldstein Room #:[id number] for Echo:CHF M-Mode Normal Adult Results LV Dimensions Normal Adult Results AoV Opening excursions >1.6 >1.6 LVEDD-base- 3.5-5.8 5.4 Ao root dimensions 2.0-3.7 3.1 LVESD-base- 3.1-4.6 L. Atrium dimensions 1.9-3.8 4.3 Post. Wall thickness 0.8-1.1 1.2 IV septum (thickness) 0.7-1.2 1.3 Post. Wall excursion 0.72-1.3 0.2 Septal motion 0.3 Systolic motion R. Ventricular cavity 1.5-2.0 3.5 LVEF 60% 20-25% Paradoxical septal wall motion NORMAL 2-D :MITRAL VALVE PROLAPSE NOTED LEFT PARASTERNAL LONG AXIS AND APICAL FOUR CHAMBER VIEW--AORTIC VALVE, TRICUSPID VALVE, PULMONARY VALVE --NORMAL,ENLARGED RIGHT VENTRICLE, RIGHT ATRIAL AND LEFT ATRIAL CAVITIES--LEFT VENTRICLE SIZE NORMAL, HYPOKINETIC LEFT VENTRICLE --NO THROMBUS, NO EFFUSION, PACEMAKER WIRES SEEN COLOR FLOW:MILD TO MODERATE --TRICUSPID REGURGITATION, MITRAL REGURGITATION, AORTIC REGURGITATION M-MODE: MV:MITRAL VALVE PROLAPSE NOTED AV: NORMAL TV: NORMAL PV: NORMAL CHAMBER SIZE: ENLARGED RIGHT VENTRICLE, RIGHT ATRIAL AND LEFT ATRIAL SIZE WALL MOTION:HYPOKINETIC LEFT VENTRICLE PERICARDIUM: NORMAL INTERPRETATION: 1.LEFT VENTRICLE HYPERTROPHY 2. ENLARGED LEFT ATRIAL, RIGHT VENTRICLE AND RIGHT ATRIAL CAVITIES 3. SEVERE HYPOKINETIC LEFT VENTRICLE WITH EJECTION FRACTION 20 TO 25% 4. MILD TO MODERATE TRICUSPID REGURGITATION, MITRAL REGURGITATION, AORTIC REGURGITATION Lab Results Last 24 Hours: 03/06/23 08:29 WBC 5.95 RBC 4.23 L Hgb 13.1 L Hct 40.2 L MCV 95.0 H MCH 31.0 MCHC 32.6 RDW Coeff of Shane 13.7 Plt Count 138 L Immature Gran % (Auto) 0.2 Neut % (Auto) 65.4 Lymph % (Auto) 18.3 [place] % (Auto) 12.9 H Eos % (Auto) 2.2 Baso % (Auto) 1.0 Neut # (Auto) 3.9 Lymph # (Auto) 1.1 [place] # (Auto) 0.8 Eos # (Auto) 0.1 Baso # (Auto) 0.1 Immature Gran # (Auto) 0.0 Sodium 140.3 Potassium 3.85 Chloride 106.6 Carbon Dioxide 28.2 Anion Gap 9.35 BUN 13.9 Creatinine 0.91 Estimated GFR (MDRD) 99.00 BUN/Creatinine Ratio 15.27 Glucose 106.6 H Calcium 8.61 Total Bilirubin 0.97 AST 20.3 ALT 14.2 Alkaline Phosphatase 84.3 Total Protein 6.61 Albumin 3.89 Globulin 2.72 Albumin/Globulin Ratio 1.43 Discharge Instructions Discharge Planning: Discharge Planning > 40 minutes Start new prescriptions of spironolactone 25 mg daily and jardiance 10 mg daily for treatment of CHF. Finish course of azithromycin 500 mg and medrol dose pack for treatment of pneumonia. Follow-up with PCP next week. Activity as tolerated. Be sure to elevate legs throughout the day and wear compression stockings during the day and take off at night. Fluid restriction of 2L per day. Cardiac/low sodium diet. Medications Given This Visit: Medications Generic Name Dose Route Start Last Admin Trade Name Freq PRN Reason Stop Dose Admin Acetaminophen 650 mg 03/04/23 16:08 Acetaminophen 325 Mg Tablet PO Q4H PRN Mild Pain Albuterol Sulfate 2.5 mg 03/04/23 16:08 Albuterol Sulfate 0.083% Vial.Nick ARROYO RTQ6H PRN shortness of breath Albuterol/Ipratropium 3 ml 03/04/23 18:00 03/06/23 10:59 Ipratropium/Albuterol Vial.Neb NEB 3 ml RTQ6H JORGE Administration Apixaban 5 mg 03/05/23 21:00 03/06/23 09:07 Apixaban 5 Mg Tab PO 5 mg BID JORGE Administration Atorvastatin Calcium 40 mg 03/06/23 17:00 Atorvastatin Calcium 20 Mg Tablet PO QPM JORGE Carvedilol 25 mg 03/05/23 17:00 03/06/23 09:06 Carvedilol 12.5 Mg Tablet PO 25 mg BIDWM JORGE Administration Empagliflozin 10 mg 03/06/23 09:00 03/06/23 09:07 Empagliflozin 10 Mg Tablet PO 10 mg DAILY JORGE Administration Furosemide 40 mg 03/04/23 21:00 03/06/23 05:04 Furosemide Inj 40 Mg/4 Ml Vial IVP 40 mg Q8HR JORGE Administration CEFTRIAXONE/D5W 1 GM PREMIX 1 gm in 50 mls @ 75 mls/hr 03/05/23 09:00 03/06/23 11:24 Rocephin 1 Gm/50 Ml D5w IV 03/08/23 08:59 Not Given DAILY JORGE Azithromycin 500 mg/ Sodium 250 mls @ 125 mls/hr 03/05/23 09:00 03/06/23 09:07 Chloride IV 03/06/23 23:59 125 mls/hr DAILY JORGE Administration Loratadine 10 mg 03/05/23 16:00 03/06/23 09:07 Loratadine 10 Mg Tablet PO 10 mg DAILY JORGE Administration Sacubitril/Valsartan 2 each 03/05/23 21:00 03/06/23 09:05 Sacubitril/Valsartan 1 Each Tablet PO 2 each BID JORGE Administration Sodium Chloride 1 syr 03/05/23 21:00 03/06/23 05:04 0.9% Sodium Chloride 10 Ml Disp.Syrin IVF 1 syr Q8HR JORGE Administration Spironolactone 25 mg 03/06/23 09:00 03/06/23 09:06 Spironolactone 25 Mg Tablet PO 25 mg DAILY JORGE Administration Medications Given This Visit: Medications at Discharge (Home Meds & RX) atorvastatin 40 mg tablet 40 mg PO QPM 01/24/21 nitroglycerin 0.4 mg sublingual tablet 0.4 mg sublingual Q5M PRN chest pain 01/24/21 carvedilol 12.5 mg tablet 25 mg PO BID 09/03/22 furosemide 40 mg tablet 20 mg PO BID 09/03/22 sacubitril 49 mg-valsartan 51 mg tablet (Entresto) 1 tab PO BID 09/03/22 Eliquis DVT-PE Treat 30D Start (apixaban) See Rx Instructions PO PER PKG DIR #74 ea 02/05/23 loratadine 10 mg tablet (Allergy Relief (loratadine)) 10 mg PO QDAY 30 days #30 tabs 02/05/23 Discharge Plan Discharge Activity Restrictions/Additional Instructions: Start new prescriptions of spironolactone 25 mg daily and jardiance 10 mg daily for treatment of CHF. Finish course of azithromycin 500 mg and medrol dose pack for treatment of pneumonia. Activity as tolerated. Be sure to elevate legs throughout the day and wear compression stockings during the day and take off at night. Fluid restriction of 2L per day. Cardiac/low sodium diet. YOU HAVE A FOLLOW UP APPOINTMENT WITH DR. CHAVIRA'S OFFICE ON February AT 12:45PM. SHOULD YOU HAVE ANY QUESTIONS OR NEED TO RESCHEDULE YOU CAN CONTACT THEIR OFFICE AT [phone]. Instructions: Heart Failure (GEN), Community Acquired Pneumonia (GEN), Fluid Restriction (GEN) Patient Disposition: HOME SELF-CARE Prescriptions: New spironolactone 25 mg Tablet 25 mg PO DAILY 30 Days Qty: 30 0RF Jardiance 10 mg Tablet 10 mg PO DAILY 30 Days Qty: 30 0RF methylprednisolone [Medrol (Russ)] 4 mg tablets,dose pack See Rx Instructions .ROUTE .COMPLEX Qty: 21 0RF Rx Instructions: orally per package directions azithromycin 500 mg tablet 500 mg PO DAILY 5 Days Qty: 5 0RF Continued Eliquis DVT-PE Treat 30D Start 5 mg (74 tabs) tablets,dose pack See Rx Instructions PO PER PKG DIR Qty: 74 0RF Rx Instructions: PO PER PKG DIR loratadine [Allergy Relief (loratadine)] 10 mg tablet 10 mg PO QDAY 30 Days Qty: 30 0RF nitroglycerin 0.4 mg tablet, sublingual 0.4 mg sublingual Q5M PRN (Reason: chest pain) Rx Instructions: do not exceed 3 doses per episode atorvastatin 40 mg tablet 40 mg PO QPM carvedilol 12.5 mg tablet 25 mg PO BID Rx Instructions: must administer with a meal/food furosemide 40 mg tablet 20 mg PO BID Entresto 49-51 mg tablet 1 tab PO BID Did you review [place] [employer] for ALL controlled substances?: No Discussed opioids are addictive and Narcan is available by prescription or from pharmacy.: No Condition: Good
[2023-03-06] MEDS ORDERED: LIPITOR PO SCH (17:00)
== END 2023-03-06 14:18 | disposition home or self-care (01) ==
LOC: ED 12:51 → INTOOBSV 16:24 → MEDSURG B 16:24
PROVIDERS: ADMIT Hospitalist; ATTEND Nurse Practitioner Family
DX: J30.2 Other seasonal allergic rhinitis; Z95.0 Presence of cardiac pacemaker; J18.9 Pneumonia, unspecified organism; Z79.84 Long term (current) use of oral hypoglycemic drugs; Z51.81 Encounter for therapeutic drug level monitoring; Z79.899 Other long term (current) drug therapy; I11.0 Hypertensive heart disease with heart failure; J44.9 Chronic obstructive pulmonary disease, unspecified; Z20.822 Contact with and (suspected) exposure to COVID-19; I50.23 Acute on chronic systolic (congestive) heart failure; R06.02 Shortness of breath; Z87.891 Personal history of nicotine dependence; E78.5 Hyperlipidemia, unspecified; R41.3 Other amnesia; I82.409 Acute embolism and thrombosis of unspecified deep veins of unspecified lower extremity